=== PATIENT | male | born 1945 | race Caucasian/White ===

== ENCOUNTER → 2018-01-15 | Outpatient (CLI) | payer MEDICARE ==
[~2018-01-15] MED LIST: ASPI325 PO; ATOR20 PO; CARVEDILOL; CENTRUM COMPLE1 EACH PO; CODACE30 PO; EZET10 PO; FOLI1 PO; Flomax0.4 MG PO; LISI20 PO; METF500 PO; METFORMIN; METO25ER PO; NAPR500 PO; Norco 5-325 Ta1 EACH PO; OMEP20ER PO; Omega 3 1,0001 EACH PO; PROM25 PO; RXCODACET PO; SIMV40 PO; SPIR25 PO; VIT1CAPS12; Zocor PO
== END | disposition home or self-care (01) ==
LOC: LAB SHORT 07:37 → PLD 07:37
DX: L82.1 Other seborrheic keratosis (principal)
CPT/HCPCS: 88305

== ENCOUNTER 2019-07-04 08:16 | Day surgery (SDC) | payer MEDICARE, OTHER ==
[~2019-07-04] VITALS: Ht 177.8 cm; Wt 84.0 kg
[~2019-07-04 08:16] MED LIST changes: +ASPI325EC PO; +CARV25 PO; +Cilostazol50 MG PO; +EYLEA2 MG/0.05 IO; +FERSU300 PO; +Glucophage1000 MG PO; +IRON236 MG PO; +MULTI VITAMIN1 EACH PO; +OMEG1CAP30 PO; +PIOG15 PO; +PRESERVISION A1 EACH PO; +TAMS.4ER PO
[2019-07-04] MEDS ORDERED: CLOP75 PO (18:37)
--- NOTE | 2019-07-04 19:24 | NUR ---
DISCHARGE PT AMBULATES TO RESTROOM WITH NO COMPLICATIONS. R FEMORAL ACCESS SITE AND LEFT DP ACCESS SITE ARE C/D/I WITH NO BLEEDING, OOZING OR HEMATOMA. PT DENIES ANY PAIN. PT REPORTS IMPROVEMENT WITH ZOFRAN THAT WAS GIVEN IV FOR NAUSEA AT 1850. PT AND STATE THEIR UNDERSTANDING OF SITE CARE AND DISCHARGE INSTRUCTIONS AND DENY ANY QUESTIONS OR CONCERNS. PT VSS. IV WAS DCD WITH CATH IN TACT. PT TAKEN TO FRONT ENTERENCE BY ROSEMARIE MARSHALL IN WHEELCHAIR WHERE PTS WAITS WITH THE CAR.
== END 2019-07-04 23:24 | disposition home or self-care (01) ==
LOC: MHTC 08:16
DX: I70.213 Atherosclerosis of native arteries of extremities with intermittent claudication, bilateral legs (principal); Z88.6 Allergy status to analgesic agent; Z88.5 Allergy status to narcotic agent; Z88.0 Allergy status to penicillin; Z91.011 Allergy to milk products
CPT/HCPCS: 36140; 37226; 75625; 75716; 75774; 76937; 85347; 99152; 99153; C1725; C1757; C1760; C1769; C1874; C1887; C1894; C2623; J1644; J2250; J2405; J3010; J7030; Q9967

== ENCOUNTER 2019-08-07 12:34 | Day surgery (SDC) | payer MEDICARE, OTHER ==
[~2019-08-07] VITALS: Ht 177.8 cm; Wt 88.6 kg
[~2019-08-07 12:34] MED LIST changes: +CLOP75 PO
--- NOTE | 2019-08-07 18:57 | NUR ---
DISCHARGE PT REMAINED A&OX3 AND DENIED ANY PAIN DURING RECOVERY. L GROIN SITE REMAINED [id number] HEMATOMA NOTED. IV DC'D WITH CANULA IN TACT. PT UP TO RESTROOM WITH SBA AND DRESSED SELF INDEPENANTLY. [facility] CLERK CALLED BY THIS NURSE FOR FOLLOW-UP APPOINTMENT-PT WILL BE CALLED WITH DATE AND TIME. DISCHARGE PAPERWORK GONE OVER WITH PT. PT VERBALLY STATED THE UNDERSTANDING OF THE DISCHARGE EDCUCATION AND DENIED ANY QUESTIONS AT THIS TIME. PT WHEELED OUT BY ALEX Long RN.
== END 2019-08-07 22:51 | disposition home or self-care (01) ==
LOC: MHTC 12:34
DX: I70.211 Atherosclerosis of native arteries of extremities with intermittent claudication, right leg (principal); Z88.0 Allergy status to penicillin; Z88.8 Allergy status to other drugs, medicaments and biological substances; Z88.5 Allergy status to narcotic agent; Z91.011 Allergy to milk products; Z91.02 Food additives allergy status; Z79.899 Other long term (current) drug therapy; Z79.82 Long term (current) use of aspirin; Z79.01 Long term (current) use of anticoagulants
CPT/HCPCS: 85347; 99152; 99153; C1714; C1725; C1760; C1769; C1874; C1884; C1887; C1894; C2623; J1644; J2250; J3010; J7030; Q9967

== ENCOUNTER 2021-11-11 08:22 | Day surgery (SDC) | payer MEDICARE, OTHER ==
[~2021-11-11] VITALS: Ht 177.8 cm; Wt 68.9 kg
[~2021-11-11 08:22] MED LIST changes: +FINA5 PO; -Glucophage1000 MG PO
--- NOTE | 2021-11-11 09:17 | NUR ---
History, Chart, Medications and Allergies reviewed before start of procedure.Ambulatory in Day SurgeryLungs clear T/O to Auscultation. Patient confirms NPO status and agrees with scheduled surgery. Pre-Op teaching done. Pt verbalizes understanding. Patient States Post-Procedure ride home has been arranged.
--- NOTE | 2021-11-11 09:46 | NUR ---
11/11/21 0946 Bennie Cai History, Chart, Medications and Allergies reviewed before start of procedure.MONITOR INTACT WITH CONTINUOUS PULSE OXIMETRY AND INTERMITTENT BP.3-LEAD EKG REVIEWED WITH PHYSICIAN PRIOR TO START OF PROCEDURE.O2 VIA POM INTACT THROUGHOUT SEDATION/PROCEDURE. See Anesthesia record.
--- NOTE | 2021-11-11 10:38 | NUR ---
DR. RIVERA SPOKE TO PT AND RE: GASTRIC ULCER. ORDERS GIVEN AND REWIEWED WITH THEM.
--- NOTE | 2021-11-11 11:32 | NUR ---
Patient up to Ambulate independently. Gait steady. Discharge instructions reviewed with patient. Patient verbalizes understanding. Copy given to patient to take home. Discharged via wheelchair to private car for ride home WITH
== END 2021-11-11 23:59 | disposition home or self-care (01) ==
LOC: ORSCMMR 08:22 → ORD 09:45 → ORSCMMR 23:59
PROVIDERS: Internal Medicine Gastroenterology
PROC: 0DB98ZX Excision of Duodenum, Via Natural or Artificial Opening Endoscopic, Diagnostic (ICD-10-PCS; principal; 2021-11-11 09:45)
PROC: 0DB78ZX Excision of Stomach, Pylorus, Via Natural or Artificial Opening Endoscopic, Diagnostic (ICD-10-PCS; principal; 2021-11-11 09:45)
DX: D50.9 Iron deficiency anemia, unspecified (principal); Z87.11 Personal history of peptic ulcer disease; K25.9 Gastric ulcer, unspecified as acute or chronic, without hemorrhage or perforation; R63.4 Abnormal weight loss; E11.9 Type 2 diabetes mellitus without complications; G47.33 Obstructive sleep apnea (adult) (pediatric); Z87.891 Personal history of nicotine dependence; I25.10 Atherosclerotic heart disease of native coronary artery without angina pectoris; E78.00 Pure hypercholesterolemia, unspecified; N40.0 Benign prostatic hyperplasia without lower urinary tract symptoms; Z79.84 Long term (current) use of oral hypoglycemic drugs; Z79.82 Long term (current) use of aspirin; Z79.899 Other long term (current) drug therapy; Z79.02 Long term (current) use of antithrombotics/antiplatelets
CPT/HCPCS: 82947; 88305; 88342; C9113; J2704; J7120

== ENCOUNTER 2023-03-30 08:22 | Observation (INO) | payer MEDICARE ==
[~2023-03-30] VITALS: Ht 177.8 cm; Wt 68.0 kg
[2023-03-30 08:57] LABS: BASOPHILS ABSOLUTE AUTO 0.07 K/mm3 (0.00-0.23); BASOPHILS PERCENT AUTO 1 % (0-2); EOSINOPHILS ABSOLUTE AUTO 0.22 K/mm3 (0.00-0.68); EOSINOPHILS PERCENT AUTO 3 % (0-6); Hematocrit 40.5 % (37.0-53.0); Hemoglobin 13.1 g/dL (13.5-17.5); IMMATURE GRAN ABSOLUTE AUTO 0.02 K/mm3 (0.00-0.10); IMMATURE GRAN PERCENT AUTO 0 % (0-1); LYMPHOCYTES ABSOLUTE AUTO 2.04 K/mm3 (0.84-5.20); LYMPHOCYTES PERCENT AUTO 32 % (21-46); MONOCYTES ABSOLUTE AUTO 0.78 K/mm3 (0.16-1.47); MONOCYTES PERCENT AUTO 12 % (4-13); Mean Corpuscular HGB 28.4 pg (26.0-34.0); Mean Corpuscular HGB Conc 32.3 g/dL (31.5-36.5); Mean Corpuscular Volume 88 fL (80-100); Mean Platelet Volume 10.6 fL (9.1-12.4); NEUTROPHILS ABSOLUTE AUTO 3.25 K/mm3 (1.96-9.15); NEUTROPHILS PERCENT AUTO 51 % (41-73); Platelet Count 224 K/mm3 (150-400); RDW Coefficient Variation 14.2 % (11.7-14.2); RDW Standard Deviation 45.2 fL (35.1-46.3); Red Blood Cell Count 4.62 M/mm3 (4.30-5.90); White Blood Cell Count 6.38 K/mm3 (4.00-11.30)
[2023-03-30] MEDS ORDERED: FINA5 (09:08)
[2023-03-30 09:25] LABS: Albumin, Blood 3.8 g/dL (3.4-5.0); Albumin/Globulin Ratio 1.2 (0.8-1.8); Bilirubin, Total 0.4 mg/dL (0.1-1.0); Creatinine, Blood 1.09 mg/dL (0.60-1.20); Globulin, Blood 3.3 g/dL (2.2-4.0); Magnesium, Blood 2.1 mg/dL (1.6-2.4); Potassium, Blood 4.7 mmol/L (3.5-5.5); Total Protein, Blood 7.1 g/dL (6.4-8.2)
--- NOTE | 2023-03-30 13:21 | NUR ---
Pt arrived to [address] from ED, report obtained, a/ox4, pleasant and coopertive with care, follows commands well, denies pain, states he's improved, capsule maker are equal, dpfe slightly weaker on left side, raquel, no facial droop noted, speech is clear, lungs are clear on r/a, no cough noted, hrr, slow, in the 50's, no edema noted, ppp+1, cap refill <3sec, vs stable, afebrile, piv site is clear and patent, btx4, abd flat soft nontender, voids without diff, skin c/w/d, maew, raquel, oriented to room layout and call system, call light in reach.
[2023-03-30 13:26] VITALS: BP 147/94
[2023-03-30] MEDS ORDERED: VITAMIN D31000 UNI1 PO (13:40)
[2023-03-30 15:45] VITALS: BP 145/81
--- NOTE | 2023-03-30 18:14 | NUR ---
pt has inproved, PT cleared him to be up, family in room, no acute changes this shift. call light in reach.
[2023-03-30 19:37] VITALS: BP 132/72
[2023-03-31 04:38] VITALS: BP 140/82
[2023-03-31 05:15] LABS: Hematocrit 37.9 % (37.0-53.0); Hemoglobin 12.3 g/dL (13.5-17.5); Mean Corpuscular HGB 28.7 pg (26.0-34.0); Mean Corpuscular HGB Conc 32.5 g/dL (31.5-36.5); Mean Corpuscular Volume 88 fL (80-100); Platelet Count 195 K/mm3 (150-400); RDW Coefficient Variation 13.8 % (11.7-14.2); RDW Standard Deviation 44.9 fL (35.1-46.3); Red Blood Cell Count 4.29 M/mm3 (4.30-5.90); White Blood Cell Count 5.74 K/mm3 (4.00-11.30)
[2023-03-31 06:08] LABS: Bun/Creatinine Ratio 14.3 (12.0-20.0); Calcium, Blood 8.8 mg/dL (8.5-10.1); Creatinine, Blood 0.98 mg/dL (0.60-1.20); Potassium, Blood 3.8 mmol/L (3.5-5.5)
--- NOTE | 2023-03-31 06:14 | NUR ---
SHIFT SUMMARY PATIENT IS A/O X4. NO NOTED SLURRED SPEECH OR FACIAL DROOP. PATIENT REPORTS HAVING MORE STRENGTH IN EXTREMITIES. PATIENT HAS HIS HOME CPAP HE USES AT NIGHT. PATIENT ON CONTINUOUS BIOX SATTING >95% ON RA. PATIENT DENIES PAIN. PATIENT REPORTS NOT SLEEPING WELL. PATIENT IS SITTING UP IN BED THIS MORNING HAVING COFFEE. BED IS LOCKED IN THE LOWEST POSITION WITH CALL LIGHT IN REACH. NO S/S OF DISTRESS NOTED AT THIS TIME.
[2023-03-31 07:27] VITALS: BP 147/91
[2023-03-31] MEDS ORDERED: ATOR80 PO (11:51)
[2023-03-31] MEDS ORDERED: ASPI81CH PO (11:52)
--- NOTE | 2023-03-31 13:29 | NUR ---
DISCHARGE SUMMARY PATIENTS LEFT SIDE WEAKNESS AND SPEECH ISSUES HAVE RESOLVED AT THIS TIME. PATIENT DENIES ANY ISSUES AND IS UP INDEPENDENT IN ROOM. PATIENT MEDICATION AND EDUCATION PACKET PRINTED AND REVIEWED WITH PATIENT AND AND SIGNATURE OBTAINED. PATIENT ELECTED TO TAKE HIS OWN CARVEDILOL ONCE HOME DUE TO DIFFICULTY GETTING MEDICATION IN [facility] APPROVED.IV AND TELEMETRY REMOVED BY LI AND PATIENT LEFT UNIT AT 1255 WITH GIOVANNY JEFFERSON, LEAVING VIA PRIVATE VEHICLE WITH .
== END 2023-03-31 13:20 | disposition home or self-care (01) ==
LOC: ER 08:22 → MEDS 08:23 → ER 11:54 → MEDS 11:54 → ENPENDDIS 03-31 11:32 → MEDS 03-31 13:20
PROVIDERS: Emergency Medicine; ADMIT Internal Medicine
DX: G45.9 Transient cerebral ischemic attack, unspecified (principal); I25.10 Atherosclerotic heart disease of native coronary artery without angina pectoris; I10 Essential (primary) hypertension; R91.1 Solitary pulmonary nodule; G47.33 Obstructive sleep apnea (adult) (pediatric); E11.9 Type 2 diabetes mellitus without complications; Z95.1 Presence of aortocoronary bypass graft; I25.2 Old myocardial infarction; Z87.891 Personal history of nicotine dependence
CPT/HCPCS: 36415; 70450; 70496; 70498; 71045; 80048; 80053; 82947; 83735; 83880; 85025; 85027; 93005; 93010; 94762; 96361; 96365; 96375; 96376; 97162; 97165; 99285-25; A9270; C8929; G0378; Q9957; Q9967

== ENCOUNTER 2025-03-21 07:44 | Day surgery (SDC) | payer OTHER ==
[2025-03-21] VITALS (23 sets, daily range): BP systolic 100–162; BP diastolic 62–93
[~2025-03-21] VITALS: Ht 172.7 cm; Wt 69.3 kg
[~2025-03-21 07:44] MED LIST changes: +ASPI81CH PO; +ATOR80 PO; +Benzocaine Oral Spray 0.5ML UD ONE; +FINA5; +VITAMIN D31000 UNI1 PO
--- NOTE | 2025-03-21 08:21 | NUR ---
Patient States Post-Procedure ride home has been arranged. Patient confirms NPO status and agrees with scheduled surgery. Patient states colon prep results clear.Lungs clear T/O to Auscultation.
--- NOTE | 2025-03-21 09:00 | NUR ---
03/21/25 0900 Sandy Pitts CONFIRMED AND REVIEWED H&P, MEDCICATIONS, ALLERGIES, MEDICAL HISTORY, RESPIRATORY HISTORY, VITAL SIGNS, 3-LEAD EKG, CONSENTS, AND PHYSICIAN ORDERS. PATIENT CONFIRMS NPO STATUS AND AGREES WITH SCHEDULED PROCEDURE. MONITOR INTACT WITH CONTINUOUS PULSE OXIMETRY, CAPNOGRAPHY, 3-LEAD EKG, INTERMITTENT BP. SUPPLEMENTAL O2 TO BE TITRATED THROUGHOUT PROCEDURE TO MAINTAIN O2 SATURATION ABOVE 90%. PATIENT DETERMINED TO BE ASA APPROPRIATE FOR PROPOFOL SEDATION PRIOR TO START OF PROCEDURE BY DR. RIVERA. HURRICAINE SPRAY TO OROPHARYX AT START OF UPPER ENDOSCOPY.
--- NOTE | 2025-03-21 10:04 | NUR ---
TO STEP POST PROCEDURE. KERLINE PO WELL. DENIES PAIN, NAUSEA, SOB. VERBALIZED UNDERSTANDING OF DC INSTRUCTIONS. DC'D IV INTACT. DC'D VIA WC TO PRIVATE CAR WITH PALEOLOGY TEACHER.
== END 2025-03-21 10:00 | disposition home or self-care (01) ==
LOC: ORSCMMR 07:44 → ORD 08:30 → ORSCMMR 10:00
PROVIDERS: Internal Medicine Gastroenterology
PROC: 0DB98ZX Excision of Duodenum, Via Natural or Artificial Opening Endoscopic, Diagnostic (ICD-10-PCS; principal; 2025-03-21 08:30)
PROC: 0DBH8ZX Excision of Cecum, Via Natural or Artificial Opening Endoscopic, Diagnostic (ICD-10-PCS; principal; 2025-03-21 08:30)
PROC: 0DB68ZX Excision of Stomach, Via Natural or Artificial Opening Endoscopic, Diagnostic (ICD-10-PCS; principal; 2025-03-21 08:30)
DX: D50.0 Iron deficiency anemia secondary to blood loss (chronic) (principal); K63.5 Polyp of colon; K64.8 Other hemorrhoids; Z86.0101 Personal history of adenomatous and serrated colon polyps; Z87.11 Personal history of peptic ulcer disease; I73.9 Peripheral vascular disease, unspecified; I25.10 Atherosclerotic heart disease of native coronary artery without angina pectoris; I25.2 Old myocardial infarction; Z86.73 Personal history of transient ischemic attack (TIA), and cerebral infarction without residual deficits; E78.00 Pure hypercholesterolemia, unspecified; N40.0 Benign prostatic hyperplasia without lower urinary tract symptoms; Z79.02 Long term (current) use of antithrombotics/antiplatelets; Z79.899 Other long term (current) drug therapy; Z87.891 Personal history of nicotine dependence
CPT/HCPCS: 88305; 88342; A9270; J2704; J7120